=== PATIENT | female | born 1975 | race American Indian/Alaskan Native ===

== ENCOUNTER 2021-11-22 18:53 | Emergency (ER) | payer SELFPAY ==
[2021-11-22] MEDS ORDERED: KETOROLAC 60 MG/2 ML INJ IM STA (21:17)
[2021-11-22] MEDS ORDERED: TETANUS,DIPH,PERTUSS(ACELL) VACCINE 0.5 ML SYRINGE IM ONE (21:17)
--- NOTE | 2021-11-22 21:37 | Emergency Department Report ---
ED Fall HPI - General Chief Complaint: Headache Stated Complaint: SEVERE PAIN IN BACK/HEAD/SIDE/LEGS Time Seen by Provider: 11/22/21 20:38 Source: patient Mode of arrival: Ambulatory - History of Present Illness MD Complaint: fall -: Gradual Fall From: standing, from height (distance) (6ft) When Fall Occurred: 4-[address] Fall Occurred: home Loss of Consciousness: none Prolonged Down Time?: no Symptoms Prior to Fall: none (Without a libertarian and the deck collapsed) Severity: mild Quality: dull - Related Data Previous Rx's Medication Instructions Recorded Last Taken Type Ketorolac [Toradol] 10 mg PO Q6H PRN #14 11/22/21 Unknown Rx methOCARBAMOL [Robaxin TAB] 750 mg PO Q8H #20 11/22/21 Unknown Rx Allergies Allergy/AdvReac Type Severity Reaction Status Date / Time No Known Allergies Allergy Unverified 11/22/21 19:23 ED Review of Systems ROS: Stated complaint: SEVERE PAIN IN BACK/HEAD/SIDE/LEGS Other details as noted in HPI Comment: All other systems reviewed and negative ED Past Medical Hx - Past Medical History Previous Medical History?: No - Surgical History Past Surgical History?: No - Medications Home Medications: Home Medications Medication Instructions Recorded Confirmed Last Taken Type Ketorolac [Toradol] 10 mg PO Q6H PRN #14 11/22/21 Unknown Rx methOCARBAMOL [Robaxin TAB] 750 mg PO Q8H #20 11/22/21 Unknown Rx ED Physical Exam - General Limitations: No Limitations General appearance: alert, in no apparent distress - Head Head exam: Present: atraumatic, normocephalic, normal inspection - Eye Eye exam: Present: normal appearance, PERRL, EOMI Pupils: Present: normal accommodation - ENT ENT exam: Present: normal exam, normal orophraynx, mucous membranes moist, TM's normal bilaterally - Neck Neck exam: Present: normal inspection, full ROM - Respiratory Respiratory exam: Present: normal lung sounds bilaterally. Absent: respiratory distress, wheezes, rales, rhonchi, accessory muscle use, decreased breath sounds - Cardiovascular Cardiovascular Exam: Present: regular rate, normal rhythm. Absent: systolic murmur, diastolic murmur, rubs, gallop - GI/Abdominal GI/Abdominal exam: Present: soft, normal bowel sounds. Absent: distended, tenderness, guarding, rebound, hyperactive bowel sounds, hypoactive bowel karely nds, organomegaly - Extremities Exam Extremities exam: Present: normal inspection - Back Exam Back exam: Present: normal inspection - Neurological Exam Neurological exam: Present: alert, oriented X3 - Psychiatric Psychiatric exam: Present: normal affect, normal mood - Skin Skin exam: Present: warm, dry, intact, normal color. Absent: rash ED Course Vital Signs 11/22/21 19:23 Temperature 97.8 F Pulse Rate 75 Respiratory 16 Rate Blood Pressure 118/67 [Right] O2 Sat by Pulse 99 Oximetry ED Medical Decision Making - Radiology Data Radiology results: report reviewed [facility] [address] [place] [address] Cat Scan Report Signed Patient: ADRIA LOPEZ MR#: [id number] : 1975 Acct:[id number] Age/Sex: 46 / F ADM Date: 11/22/21 Loc: ED Attending Dr: Ordering Physician: TRISHA PETERSON Date of Service: 11/22/21 Procedure(s): CT chest wo con Accession Number(s): [id number] cc: TRISHA PETERSON CT CHEST WITHOUT CONTRAST INDICATION / CLINICAL INFORMATION: bilateral rib and right scapula pain / fall +6ft. TECHNIQUE: Axial CT images were obtained through the chest without contrast. All CT scans at this location are performed using CT dose reduction for ALARA by means of automated exposure control. COMPARISON: None available. FINDINGS: HEART: No significant abnormality. CORONARY ARTERY CALCIFICATION: None. THORACIC AORTA: No significant abnormality. MEDIASTINUM / JEANNINE: No significant abnormality. PLEURA: No pleural effusion. No pneumothorax. LUNGS: No acute air space or interstitial disease. ADDITIONAL FINDINGS: None. UPPER ABDOMEN: No significant abnormality. SKELETAL SYSTEM: No significant abnormality. IMPRESSION: 1. No significant abnormality, specifically no scapular fracture or fracture. Signer Name: Jim Mcgee DO Signed: 11/22/2021 10:02 PM Workstation Name: [id number] Transcribed By: BRENDAN Dictated By: JIM MCGEE DO Electronically Authenticated By: JIM MCGEE DO Signed Date/Time: 11/22/212201 DD/ 58 TD/TT: - Medical Decision Making 46-year-old female status post a fall from a deck prior to emergency department with pain to the left side and striking her head. The examination showed no significant injuries to the scalp or skull. No broken skin. Her sensation is intact in her mental status remained normal with a GCS of 15. In regards to the torso there is tenderness involving the scapular and rib CT scan did not show show any evidence of any osseous injuries or any pulmonary trauma. To be treated accordingly with anti-inflammatories and muscle relaxers and educated on ice therapy. Critical care attestation.: If time is entered above; I have spent that time in minutes in the direct care of this critically ill patient, excluding procedure time. ED Disposition Clinical Impression: Fall, Contusion of rib, Head injury due to trauma, Normal chest CT Disposition: 01 HOME / SELF CARE / HOMELESS Is pt being admited?: No Does the pt Need Aspirin: No Condition: Stable Instructions: Contusion, How to Use Cold Therapy, [id number], Rib Contusion, Blunt Chest Trauma, Head Injury, Adult Prescriptions: methOCARBAMOL [Robaxin TAB] 750 mg PO Q8H #20 Ketorolac [Toradol] 10 mg PO Q6H PRN #14 PRN Reason: Pain Referrals: [facility] [Provider Group] - 3-5 Days
--- NOTE | 2021-11-22 22:06 | Cat Scan Report ---
CT CHEST WITHOUT CONTRAST INDICATION / CLINICAL INFORMATION: bilateral rib and right scapula pain / fall +6ft. TECHNIQUE: Axial CT images were obtained through the chest without contrast. All CT scans at [facility] are performed using CT dose reduction for ALARA by means of automated exposure control. COMPARISON: None available. FINDINGS: HEART: No significant abnormality. CORONARY ARTERY CALCIFICATION: None. THORACIC AORTA: No significant abnormality. MEDIASTINUM / JEANNINE: No significant abnormality. PLEURA: No pleural effusion. No pneumothorax. LUNGS: No acute air space or interstitial disease. ADDITIONAL FINDINGS: None. UPPER ABDOMEN: No significant abnormality. SKELETAL SYSTEM: No significant abnormality. IMPRESSION: 1. No significant abnormality, specifically no scapular fracture or fracture. Signer Name: Jim Mcgee DO Signed: 11/22/2021 10:02 PM Workstation Name: [id number]
[2021-11-23 00:16] VITALS: BP 124/72
== END 2021-11-23 00:16 | disposition home or self-care (01) ==
LOC: ED 18:53
DX: S20.211A Contusion of right front wall of thorax, initial encounter (principal); S20.212A Contusion of left front wall of thorax, initial encounter; S09.90XA Unspecified injury of head, initial encounter; R91.8 Other nonspecific abnormal finding of lung field; W18.39XA Other fall on same level, initial encounter; Y93.89 Activity, other specified; Y92.89 Other specified places as the place of occurrence of the external cause; Y99.8 Other external cause status
CPT/HCPCS: 71250; 90471; 90715; 96372; 99283; J1885